=== PATIENT | female | born 1965 | race African-American/Black ===

== ENCOUNTER 2016-03-30 02:19 | Emergency (ER) | payer BC, MEDICARE, OTHER ==
[~2016-03-30] VITALS: Ht 165.1 cm; Wt 56.0 kg
[~2016-03-30 02:19] MED LIST: HYDR-3533 PO; METF500 PO; SYNT75TA PO
[2016-03-30 02:37] VITALS: BP 175/90; PULSE 82; RESP 18; TEMP 98.2; O2SAT 99
[2016-03-30] MEDS ORDERED: SODIUM CHLOR 0.9% 1000 ML INJ 1,000 ML IV ONE ×2 (02:57→04:00)
[2016-03-30] MEDS ORDERED: SODIUM CHLORIDE 0.9% FLUSH 5 ML FLUSH IVF PRN (03:00)
[2016-03-30 03:19] LABS: AUTOMATED NEUTROPHIL # 4.7 TH/MM3 (1.8-7.7); BASOPHIL % 0.6 % (0.0-2.0); EOSINOPHIL # 0.1 TH/MM3 (0-0.4); EOSINOPHIL % 0.7 % (0.0-4.0); HEMATOCRIT 40.2 % (35.0-46.0); HEMO FLAGS DIFF FINAL; LYMPH % 25.5 % (9.0-44.0); LYMPHOCYTE # 1.8 TH/MM3 (1.0-4.8); MEAN CELL VOLUME 89.1 FL (80.0-100.0); MEAN CORPUSCULAR HEMOGLOBIN 30.2 PG (27.0-34.0); MEAN CORPUSCULAR HGB CONC 33.9 % (32.0-36.0); MONO % 7.9 % (0.0-8.0); NEUT % 65.3 % (16.0-70.0); PLATELET COUNT 199 TH/MM3 (150-450); RED BLOOD COUNT 4.51 MIL/MM3 (4.00-5.30); RED CELL DISTRIBUTION WIDTH 13.8 % (11.6-17.2); WHITE BLOOD COUNT 7.1 TH/MM3 (4.0-11.0)
[2016-03-30 03:31] LABS: ALT (GPT) 21 U/L (10-53); ANION GAP 7 MEQ/L (5-15); AST (GOT) 13 U/L (15-37); BLOOD UREA NITROGEN 17 MG/DL (7-18); CHLORIDE 96 MEQ/L (98-107); GLOMERULAR FILTRATION RATE 53 ML/MIN (>89); MAGNESIUM 1.8 MG/DL (1.5-2.5); SODIUM (NA) 132 MEQ/L (136-145)
[2016-03-30 03:37] LABS: ALKALINE PHOSPHATASE 101 U/L (45-117); TOTAL BILIRUBIN ADULT 0.5 MG/DL (0.2-1.0)
--- NOTE | 2016-03-30 03:42 | RADRPT ---
EXAM DATE/TIME: 03/30/2016 03:10 [facility] COMPARISON: CHEST SINGLE AP, December 05, 2014, 2:05. INDICATIONS : Right upper abdomen pains. MEDICAL HISTORY : Diabetes mellitus type II. SURGICAL HISTORY : None. ENCOUNTER: Initial ACUITY: 2 days PAIN SCORE: 9/10 LOCATION: Right chest FINDINGS: Portable AP view of the chest demonstrates a normal-sized cardiac silhouette. No effusion, consolidat ion, or pneumothorax is visualized. The bones and soft tissues demonstrate no acute abnormality. CONCLUSION: No acute cardiopulmonary abnormality is identified. Scott Taylor MD on March 30, 2016 at 3:40 Board Certified Radiologist. This report was verified electronically.
--- NOTE | 2016-03-30 03:48 | PD ---
HPI Chief Complaint: Diabetic Time Seen by Provider: 02:56 Travel History International Travel<30 days: No Contact w/Intl Traveler<30days: No Traveled to known affect area: No History of Present Illness HPI 50-year-old female presents with lower abdominal pain intermittently over the past couple weeks with sugars over the past couple days in the 500s. She states she supposed to be on metformin but has not been on it for a couple months. She states she's never been on insulin. She denies other concurrent complaints. Quality is crampy. Severity is moderate. Pain is worse with movement. She denies other modifying factors. She denies migration the pain. PFSH Past Medical History Cardiovascular Problems: No Diabetes: Yes (OFF MEDS) Patient Takes Glucophage: No Diminished Hearing: No Endocrine: No Genitourinary: No Immune Disorder: No Musculoskeletal: No Neurologic: No Reproductive: No Respiratory: No Influenza Vaccination: No ?: Not : 3 Para: 3 Miscarriage: 0 Tubal Ligation: Yes Past Surgical History Other Surgery: No Social History Alcohol Use: Yes (OCCASIONALY) Tobacco Use: No Substance Use: No Allergies-Medications (Allergen,Severity, Reaction): Coded Allergies: Aspirin (Verified Allergy, Mild, PALPITATIONS, 03/30/16) Reported Meds & Prescriptions Reported Meds & Active Scripts Active Glipizide 5 Mg Tab 5 Mg PO DAILY Take 30 minutes before a meal Review of Systems Except as stated in HPI: all other systems reviewed are Neg Physical Exam Narrative GENERAL: Well-nourished, well-developed patient. SKIN: Warm and dry. HEAD: Normocephalic and atraumatic. EYES: No injection or drainage. ENT: No nasal drainage noted. NECK: Supple, trachea midline. CARDIOVASCULAR: Regular rate and rhythm RESPIRATORY: Breath sounds equal bilaterally. No accessory muscle use. GASTROINTESTINAL: Abdomen soft, mild tenderness with deep palpation right mid lateral abdomen, nondistended. NEUROLOGICAL: Awake and alert. Motor and sensory grossly within normal limits. Normal speech. Data Data Last Documented VS Vital Signs Date Time Temp Pulse Resp B/P Pulse Ox O2 Delivery O2 Flow Rate FiO2 03/30/16 02:37 98.2 82 18 175/90 99 Room Air Orders Electrocardiogram (03/30/16 02:57) Complete Blood Count With Diff (03/30/16 02:57) Comprehensive Metabolic Panel (03/30/16 02:57) Magnesium (Mg) (03/30/16 02:57) Phosphorus (Po4) (03/30/16 02:57) Beta Hydroxybutyrate (Acetone) (03/30/16 02:57) Urinalysis - C+S If Indicated (03/30/16 02:57) Chest, Single Ap (03/30/16 02:57) Blood Gas Venous (Vbg) (03/30/16 02:57) Blood Glucose (03/30/16 02:57) Ecg Monitoring (03/30/16 02:57) Iv Access Insert/Monitor (03/30/16 02:57) Oximetry (03/30/16 02:57) NPO (03/30/16 02:57) Sodium Chloride 0.9% Flush (Ns Flush) (03/30/16 03:00) Sodium Chlor 0.9% 1000 Ml Inj (Ns 1000 M (03/30/16 02:57) Lipase (03/30/16 02:57) Ct Abd/Pel W/O Iv Contrast (03/30/16 ) Sodium Chlor 0.9% 1000 Ml Inj (Ns 1000 M (03/30/16 04:00) Blood Glucose (03/30/16 03:46) Labs Laboratory Tests Test 03/30/16 03/30/16 03/30/16 03:00 04:20 05:00 White Blood Count 7.1 TH/MM3 Red Blood Count 4.51 MIL/MM3 Hemoglobin 13.6 GM/DL Hematocrit 40.2 % Mean Corpuscular Volume 89.1 FL Mean Corpuscular Hemoglobin 30.2 PG Mean Corpuscular Hemoglobin 33.9 % Concent Red Cell Distribution Width 13.8 % Platelet Count 199 TH/MM3 Mean Platelet Volume 11.7 FL Neutrophils (%) (Auto) 65.3 % Lymphocytes (%) (Auto) 25.5 % Monocytes (%) (Auto) 7.9 % Eosinophils (%) (Auto) 0.7 % Basophils (%) (Auto) 0.6 % Neutrophils # (Auto) 4.7 TH/MM3 Lymphocytes # (Auto) 1.8 TH/MM3 Monocytes # (Auto) 0.6 TH/MM3 Eosinophils # (Auto) 0.1 TH/MM3 Basophils # (Auto) 0.0 TH/MM3 CBC Comment DIFF FINAL Differential Comment Sodium Level 132 MEQ/L Potassium Level 4.0 MEQ/L Chloride Level 96 MEQ/L Carbon Dioxide Level 29.0 MEQ/L Anion Gap 7 MEQ/L Blood Urea Nitrogen 17 MG/DL Creatinine 1.27 MG/DL Estimat Glomerular Filtration 53 ML/MIN Rate Random Glucose 565 MG/DL Calcium Level 8.7 MG/DL Phosphorus Level 2.9 MG/DL Magnesium Level 1.8 MG/DL Total Bilirubin 0.5 MG/DL Aspartate Amino Transf 13 U/L (AST/SGOT) Alanine Aminotransferase 21 U/L (ALT/SGPT) Alkaline Phosphatase 101 U/L Total Protein 7.1 GM/DL Albumin 3.1 GM/DL Lipase 310 U/L B-Hydroxybutyrate 0.10 MMOL/L Blood Gas Puncture Site Blood Gas Patient Temperature 98.6 Venous Blood pH 7.33 Venous Blood Partial Pressure 51 mmHg CO2 Venous Blood Partial Pressure 21 mmHg O2 Venous Blood HCO3 26 mmol/L Venous Blood Oxygen Saturation 25 % Venous Blood Oxygen Content 4.7 Vol % Venous Blood Base Excess 0.9 mmol/L Oxygen Delivery Device ROOM AIR Blood Gas Inspired Oxygen 21 % Urine Color COLORLESS Urine Turbidity CLEAR Urine pH 6.5 Urine Specific [place] 1.016 Urine Protein NEG mg/dL Urine Glucose (UA) 1000 mg/dL Urine Ketones NEG mg/dL Urine Occult Blood NEG Urine Nitrite NEG Urine Bilirubin NEG Urine Urobilinogen LESS THAN 2.0 MG/DL Urine Leukocyte Esterase NEG Urine RBC 1 /hpf Urine WBC 1 /hpf Microscopic Urinalysis Comment CULT NOT INDICATED MDM Medical Decision Making Medical Screen Exam Complete: Yes Emergency Medical Condition: Yes Medical Record Reviewed: Yes (past history confirmed) Interpretation(s) EKG shows NSR, no ST elevation or depression, and no arrhythmias. No significant T-wave inversions. CBC & BMP Diagram 03/30/16 03:00 Differential Diagnosis DKA, diabetes and noncompliance, UTI, kidney stone, musculoskeletal Narrative Course Will check blood work, urinalysis, CT abdomen pelvis and dose with IV fluids and reevaluate After 2 L of IV fluid hydration glucose is in the 300s. Given renal insufficiency Will place patient on glipizide for glucose control and patient will need to follow closely with her primary care physician for optimization of diabetes.Patient denies any new complaints and states that they are feeling better. Patient happy with care, all questions answered. Patient knows that follow up is incumbent on them and to return to the emergency room immediately if new or worsening symptoms develop. Patient given strict return precautions, vitals reviewed and are normal, agrees to further workup as an outpatient. Diagnosis Primary Impression: Hyperglycemia Additional Impression: Renal insufficiency Patient Instructions: General Instructions Additional Instructions: keep blood sugar log, follow with primary thursday, return as needed, tylenol as needed Med/Other Pt SpecificInfo: Prescription(s) given Scripts Glipizide 5 Mg Tab5 Mg PO DAILY #30 TAB Ref 0 Take 30 minutes before a meal Prov:Anusha Soliman MD 03/30/16 Disposition: DISCHARGE HOME Condition: Stable Anusha Soliman MD Mar 30, 2016 03:48
--- NOTE | 2016-03-30 03:57 | RADRPT ---
EXAM DATE/TIME: 03/30/2016 03:25 [facility] COMPARISON: No previous studies available for comparison. INDICATIONS : Abdominal pain for one month. ORAL CONTRAST: No oral contrast ingested. RADIATION DOSE: 9.96 CTDIvol (mGy) MEDICAL HISTORY : Diabetes mellitus type 2. SURGICAL HISTORY : Tubal ligation. ENCOUNTER: Initial ACUITY: 1 month PAIN SCALE: 5/10 LOCATION: Bilateral abdomen. TECHNIQUE: Volumetric scanning of the abdomen and pelvis was performed. Using automated exposure control and ad justment of the mA and/or kV according to patient size, radiation dose was kept as low as reasonably achievable to obtain optimal diagnostic quality images. FINDINGS: LOWER LUNGS: The visualized lower lungs are clear. LIVER: Homogeneous density without lesion. There is no dilation of the biliary tree. No calcified gallston es. SPLEEN: Normal size without lesion. PANCREAS: Within normal limits. KIDNEYS: Normal in size and shape. There is no mass, stone, or hydronephrosis. ADRENAL GLANDS: Within normal limits. VASCULAR: There is no aortic aneurysm. BOWEL/MESENTERY: The stomach, small bowel, and colon demonstrate no acute abnormality. There is no free intraperitone al air or fluid. The appendix is normal. ABDOMINAL WALL: Within normal limits. RETROPERITONEUM: There is no lymphadenopathy. BLADDER: No wall thickening or mass. REPRODUCTIVE: Within normal limits. Uterus is retroverted. A tampon is present within the vagina. INGUINAL: There is no lymphadenopathy or hernia. MUSCULOSKELETAL: Within normal limits for patient age. CONCLUSION: No abnormality is identified to explain the abdominal pain on this CT examination performed without i ntravenous or oral contrast material. Scott Taylor MD on March 30, 2016 at 3:53 Board Certified Radiologist. This report was verified electronically.
[2016-03-30 04:29] LABS: BLOOD GAS VENOUS BASE EXCESS 0.9 mmol/L (-2-2); BLOOD GAS VENOUS HCO3 26 mmol/L (22-26); BLOOD GAS VENOUS O2 CONTENT 4.7 Vol % (9.0-17.0); BLOOD GAS VENOUS O2 HGB SAT 25 % (70-76); BLOOD GAS VENOUS PCO2 51 mmHg (44-48); BLOOD GAS VENOUS PO2 21 mmHg (35-40); BLOOD GAS VENOUS pH 7.33 (7.360-7.400); TEMP CORR TO 98.6
[2016-03-30 04:30] LABS: CRITICAL VALUE YES; FIO2 21 %; OXYGEN DEVICE ROOM AIR; STAT YES
[2016-03-30] MEDS ORDERED: GLIP5TAB8 PO (05:09)
[2016-03-30 05:14] LABS: BLOOD, URINE NEG (NEG); GLUCOSE,URINE 1000 mg/dL (NEG); KETONE, URINE NEG (NEG); NITRITE,URINE NEG (NEG); PH, URINE 6.5 (5.0-8.5); URINE COLOR COLORLESS (YELLW/STRAW)
[2016-03-30 05:20] LABS: COMMENT (UR) CULT NOT INDICATED; CULTURE IF INDICATED CULT NOT INDICATED
--- NOTE | 2016-03-30 12:43 | EKG ---
Date Performed: 03/30/2016 Time Performed: 03:45:13 PTAGE: 50 years EKG: Sinus rhythm Since previous tracing, no significant change noted NORMAL ECG PREVIOUS TRACING : 03/10/1996 16.05 DOCTOR: Sony Hernandez Interpretating Date/Time 03/30/2016 12:43:08
== END 2016-03-30 05:55 | disposition home or self-care (01) ==
LOC: NEPC 02:19
DX: E11.65 Type 2 diabetes mellitus with hyperglycemia (principal); N18.9 Chronic kidney disease, unspecified
CPT/HCPCS: 71010; 74176; 80053; 81001; 82010; 82805; 83690; 83735; 84100; 85025; 93005; 96360; 96361; 99285; J7030

== ENCOUNTER 2017-01-07 20:20 | Emergency (ER) | payer OTHER ==
[~2017-01-07] VITALS: Ht 165.1 cm; Wt 62.0 kg
[~2017-01-07 20:20] MED LIST changes: +GLIP5TAB8 PO; -HYDR-3533 PO; -METF500 PO; -SYNT75TA PO
[2017-01-07 20:23] VITALS: BP 178/90; PULSE 104; RESP 18; TEMP 98.4; O2SAT 96
[2017-01-07] MEDS ORDERED: METF500T PO (21:10)
[2017-01-07 21:34] LABS: BLOOD, URINE SMALL (NEG); GLUCOSE,URINE 1000 mg/dL (NEG); KETONE, URINE TRACE mg/dL (NEG); NITRITE,URINE NEG (NEG); PH, URINE 5.5 (5.0-8.5); URINE COLOR LIGHT-YELLOW (YELLW/STRAW)
[2017-01-07 21:36] LABS: AUTOMATED NEUTROPHIL # 4.4 TH/MM3 (1.8-7.7); BASOPHIL # 0.1 TH/MM3 (0-0.2); BASOPHIL % 0.7 % (0.0-2.0); COMMENT (UR) CULT NOT INDICATED; CULTURE IF INDICATED CULT NOT INDICATED; EOSINOPHIL % 0.5 % (0.0-4.0); HEMATOCRIT 44.8 % (35.0-46.0); HEMO FLAGS DIFF FINAL; LYMPH % 29.9 % (9.0-44.0); LYMPHOCYTE # 2.2 TH/MM3 (1.0-4.8); MEAN CELL VOLUME 87.7 FL (80.0-100.0); MEAN CORPUSCULAR HEMOGLOBIN 30.1 PG (27.0-34.0); MEAN CORPUSCULAR HGB CONC 34.3 % (32.0-36.0); MONO % 9.8 % (0.0-8.0); NEUT % 59.1 % (16.0-70.0); PLATELET COUNT 200 TH/MM3 (150-450); RED CELL DISTRIBUTION WIDTH 13.3 % (11.6-17.2); WHITE BLOOD COUNT 7.4 TH/MM3 (4.0-11.0)
--- NOTE | 2017-01-07 21:49 | PD ---
HPI Chief Complaint: Diabetic Time Seen by Provider: 21:02 Travel History International Travel<30 days: No Contact w/Intl Traveler<30days: No Traveled to known affect area: No History of Present Illness HPI Patient is 51-year-old female diabetic [id number] she takes metformin once a day but for the last 2 months she has run out of her meds. Today she started to feel dizzy dry mouth increased frequency of urination and abdominal pain. She says she gets abdominal pain when she is hyperglycemic to check her fingerstick it was over 400 and therefore she comes to the ER. Patient has no doctor at this time she is changing insurances. The pain in her abdomen is epigastric and does not radiate. She does not have any burning or actual dysuria only frequency. She has not seen another doctor. She is just recently had insurance changed. The next doctor she'll be able to see will be until February 19. She did not have any metformin to take. PFSH Past Medical History Cardiovascular Problems: No Diabetes: Yes Patient Takes Glucophage: Yes (Metformin last taken 2 months ago.) Diminished Hearing: No Endocrine: No Genitourinary: No Immune Disorder: No Musculoskeletal: No Neurologic: No Reproductive: No Respiratory: No Thyroid Disease: Yes ?: Not : 3 Para: 3 Miscarriage: 0 Tubal Ligation: Yes Past Surgical History Other Surgery: No Social History Alcohol Use: No Tobacco Use: No Substance Use: No Allergies-Medications (Allergen,Severity, Reaction): Coded Allergies: aspirin (Unverified Allergy, Mild, PALPITATIONS, 01/07/17) Reported Meds & Prescriptions Reported Meds & Active Scripts Active Metformin (Metformin HCl) 500 Mg Tab 500 Mg PO BIDPC Reported Metformin (Metformin HCl) 500 Mg Tab 500 Mg PO DAILY With a meal Review of Systems Except as stated in HPI: all other systems reviewed are Neg General / Constitutional: No: Fever, Chills Cardiovascular: No: Chest Pain or Discomfort Gastrointestinal: Positive: Abdominal Pain Genitourinary: Positive: Frequency Neurologic: Positive: Dizziness Physical Exam Narrative GENERAL: Nontoxic-appearing awake alert oriented 3 SKIN: Warm and dry. HEAD: Atraumatic. Normocephalic. EYES: Pupils equal and round. No scleral icterus. No injection or drainage. ENT: No nasal bleeding or discharge. Mucous membranes pink and moist. NECK: Trachea midline. No JVD. CARDIOVASCULAR: Regular rate and rhythm. RESPIRATORY: No accessory muscle use. Clear to auscultation. Breath sounds equal bilaterally. GASTROINTESTINAL: Abdomen soft, non-tender, nondistended. Hepatic and splenic margins not palpable. No tenderness to epigastric MUSCULOSKELETAL: Extremities without clubbing, cyanosis, or edema. No obvious deformities. NEUROLOGICAL: Awake and alert. No obvious cranial nerve deficits. Motor grossly within normal limits. Five out of 5 muscle strength in the arms and legs. Normal speech. PSYCHIATRIC: Appropriate mood and affect; insight and judgment normal. Data Data Last Documented VS Vital Signs Date Time Temp Pulse Resp B/P (MAP) Pulse Ox O2 Delivery O2 Flow Rate FiO2 01/08/17 01:12 80 16 120/76 (91) 99 01/07/17 20:23 98.4 Room Air Orders Orders Complete Blood Count With Diff (01/07/17 21:22) Comprehensive Metabolic Panel (01/07/17 21:22) Urinalysis - C+S If Indicated (01/07/17 21:22) Blood Glucose (01/07/17 21:52) Insulin Human Regular Inj (Novolin R Inj (01/07/17 22:15) Sodium Chlor 0.9% 1000 Ml Inj (Ns 1000 M (01/07/17 22:15) Sodium Chlor 0.9% 1000 Ml Inj (Ns 1000 M (01/07/17 22:15) Metformin (Glucophage) (01/07/17 23:00) Blood Glucose (01/08/17 00:47) Ed Discharge Order (01/08/17 01:02) Labs Laboratory Tests Test 01/07/17 21:20 White Blood Count 7.4 TH/MM3 Red Blood Count 5.10 MIL/MM3 Hemoglobin 15.3 GM/DL Hematocrit 44.8 % Mean Corpuscular Volume 87.7 FL Mean Corpuscular Hemoglobin 30.1 PG Mean Corpuscular Hemoglobin Concent 34.3 % Red Cell Distribution Width 13.3 % Platelet Count 200 TH/MM3 Mean Platelet Volume 10.9 FL Neutrophils (%) (Auto) 59.1 % Lymphocytes (%) (Auto) 29.9 % Monocytes (%) (Auto) 9.8 % Eosinophils (%) (Auto) 0.5 % Basophils (%) (Auto) 0.7 % Neutrophils # (Auto) 4.4 TH/MM3 Lymphocytes # (Auto) 2.2 TH/MM3 Monocytes # (Auto) 0.7 TH/MM3 Eosinophils # (Auto) 0.0 TH/MM3 Basophils # (Auto) 0.1 TH/MM3 CBC Comment DIFF FINAL Differential Comment Urine Color LIGHT-YELLOW Urine Turbidity CLEAR Urine pH 5.5 Urine Specific [place] 1.035 Urine Protein 30 mg/dL Urine Glucose (UA) 1000 mg/dL Urine Ketones TRACE mg/dL Urine Occult Blood SMALL Urine Nitrite NEG Urine Bilirubin NEG Urine Urobilinogen LESS THAN 2.0 MG/DL Urine Leukocyte Esterase NEG Urine RBC 2 /hpf Urine WBC 1 /hpf Microscopic Urinalysis Comment CULT NOT INDICATED Blood Urea Nitrogen 12 MG/DL Creatinine 1.18 MG/DL Random Glucose 452 MG/DL Total Protein 8.2 GM/DL Albumin 3.4 GM/DL Calcium Level 9.8 MG/DL Alkaline Phosphatase 153 U/L Aspartate Amino Transf (AST/SGOT) 23 U/L Alanine Aminotransferase (ALT/SGPT) 43 U/L Total Bilirubin 0.8 MG/DL Sodium Level 132 MEQ/L Potassium Level 3.7 MEQ/L Chloride Level 95 MEQ/L Carbon Dioxide Level 29.1 MEQ/L Anion Gap 8 MEQ/L Estimat Glomerular Filtration Rate 58 ML/MIN MDM Medical Decision Making Medical Screen Exam Complete: Yes Emergency Medical Condition: Yes Differential Diagnosis NIDDM due to lack of med complaince and poor diet control Narrative Course 1 liter NS then finger stick was in 400s and now 5 unit R insulin given and then another liter then Metformin PO Diagnosis Primary Impression: Non-insulin dependent type 2 diabetes mellitus Patient Instructions: General Instructions, Type 2 Diabetes in Adults (ED) Scripts Metformin (Metformin) 500 Mg Tab 500 MG PO BIDPC for Blood Sugar Management, #60 TAB 0 Refills Prov: Ketan Partida MD 01/08/17 Disposition: 01 DISCHARGE HOME Condition: Good Ketan Partida MD Jan 07, 2017 21:49
[2017-01-07 21:56] LABS: ALKALINE PHOSPHATASE 153 U/L (45-117); ALT (GPT) 43 U/L (10-53); ANION GAP 8 MEQ/L (5-15); AST (GOT) 23 U/L (15-37); BICARBONATE 29.1 MEQ/L (21.0-32.0); BLOOD UREA NITROGEN 12 MG/DL (7-18); CHLORIDE 95 MEQ/L (98-107); GLOMERULAR FILTRATION RATE 58 ML/MIN (>89); POTASSIUM 3.7 MEQ/L (3.5-5.1); SODIUM (NA) 132 MEQ/L (136-145); TOTAL BILIRUBIN ADULT 0.8 MG/DL (0.2-1.0)
[2017-01-07] MEDS ORDERED: SODIUM CHLOR 0.9% 1000 ML INJ 1,000 ML IV ONE ×2 (22:15)
[2017-01-07] MEDS ORDERED: INSULIN HUMAN REGULAR 1,000 UNITS/10 ML VIAL IV PUSH ONE (22:15)
[2017-01-07] MEDS ORDERED: metFORMIN HCL 500 MG TAB PO ONE (23:00)
[2017-01-08] MEDS ORDERED: METF500T PO (00:49)
[2017-01-08 01:12] VITALS: BP 120/76
[2017-01-13] MEDS ORDERED: LEVO75TA3 PO (16:06)
[2017-01-13] MEDS ORDERED: GLUCTES27 (16:08)
== END 2017-01-08 01:14 | disposition home or self-care (01) ==
LOC: NEPC 20:20
DX: E11.9 Type 2 diabetes mellitus without complications (principal); R42 Dizziness and giddiness; R10.9 Unspecified abdominal pain; E07.9 Disorder of thyroid, unspecified; Z79.899 Other long term (current) drug therapy; Z88.6 Allergy status to analgesic agent
CPT/HCPCS: 80053; 81001; 85025; 96361; 96374; 99284; J1815; J7030

== ENCOUNTER → 2017-05-27 | Outpatient (CLI) | payer OTHER ==
[~2017-05-27] MED LIST changes: +BD I SQ; +BLOOD GLUCOSE T1 TES; -GLIP5TAB8 PO; +LANCETS1 MI1; +LANTUS2P SQ; +LEVO50TA4 PO; +METF500T PO; +TRUE METRIX BLO1 KIT
--- NOTE | 2017-05-27 11:21 | RADRPT ---
EXAM DATE/TIME: 05/27/2017 10:23 [facility] COMPARISON: No previous studies available for comparison. INDICATIONS : Goiter. MEDICAL HISTORY : Thyroid disease. Diabetes. SURGICAL HISTORY : Tubal ligation. Right AC separation repair. ENCOUNTER: Initial ACUITY: 1 day PAIN SCORE: 0/10 LOCATION: Bilateral neck MEASUREMENTS: RIGHT LOBE: 6.3 x 2.5 x 2.3 cm LEFT LOBE: 6.3 x 4.1 x 3.0 cm FINDINGS: RIGHT LOBE: Heterogeneous echotexture throughout the gland. There are 2 masses which demonstrate heterogeneous e chotexture, oval-shaped, and increased flow with color Doppler. These are located in the upper pole measuring 1.6 x 1.7 x 1.4 cm and in the midpole measuring 1.1 x 0.9 x 1.7 cm. LEFT LOBE: Heterogeneous echotexture throughout the gland. There is a dominant mass in the upper pole which has heterogeneous echotexture, oval-shaped, and increased flow by color Doppler. The sonographic featur es of the left lobe mass are similar to the 2 abnormalities in the right side. Size 2.2 x 1.6 x 1.9 cm. ISTHMUS: Normal in size without focal abnormality. CONCLUSION: 1. Bilateral thyroid masses, the largest left upper pole measuring 2.2 cm. Raj Grullon MD on May 27, 2017 at 11:17 Board Certified Radiologist. This report was verified electronically.
== END ==
LOC: HRAD 10:04
DX: R22.1 Localized swelling, mass and lump, neck (principal); E04.2 Nontoxic multinodular goiter
CPT/HCPCS: 76536